=== PATIENT | female | born 1985 | race Two or more races ===

== ENCOUNTER 2024-07-17 19:13 | Emergency (ER) | payer MEDICAID, SELFPAY ==
--- NOTE | 2024-07-17 19:31 | EKG_ITS ---
[facility] Test Date: 2024-07-17 Pat Name: MIRIAN FINK Department: Room: - Gender: Female Android Developer: : [id number] Requested By: Dany Mireles Order Number: [id number] Reading MD: Dany Mireles Measurements Intervals [place] Rate: 65 P: 41 OR: 154 QRS: 11 QRSD: 77 T: 16 QT: 374 QTc: 391 Interpretive Statements SINUS RHYTHM No previous ECG available for comparison /store/S0/[id number]
--- NOTE | 2024-07-17 19:31 | XR_ITS ---
Examination: PA chest single view Technique: Upright PA chest single view Exam date and time: July 17, 2024 at 2043 hrs. Comparison June 17, 2004 Indications: Chest pain beginning 3 days ago. Findings: Suspicious for 10 mm pulmonary nodule left upper lobe Normal heart size No lobar pneumonia Impression: Recommend AP lordotic chest follow-up to exclude 10 mm pulmonary nodule left upper lobe
--- NOTE | 2024-07-17 19:32 | PD.EDRME ---
Rapid Medical Screening Exam RME Arrival date/time: 07/17/24 19:13 Chief Complaint: General Adult/Misc Complain Time Seen by Provider: 07/17/24 19:22 Vital signs: Vital Signs Temperature 98.6 F 07/17/24 19:37 Pulse Rate 72 07/17/24 19:37 Respiratory Rate 18 07/17/24 19:37 Blood Pressure 132/66 H 07/17/24 19:37 Pulse Oximetry (%) 100 07/17/24 19:37 Oxygen Delivery Method Room Air 07/17/24 19:37 RME Narrative: Chest pain, dizziness x 3 days, n/v today
[2024-07-17 19:37] VITALS: BP 132/66; PULSE 72; RESP 18; TEMP 37; O2SAT 100
[2024-07-17 20:09] LABS: Basophils # (Auto) 0.1 Thou/mm3 (0.0-0.2); Basophils % (Auto) 1 % (0-2.5); Eosinophils # (Auto) 0.3 Thou/mm3 (0.0-0.5); Eosinophils % (Auto) 2 % (0-10); Hematocrit 37.7 % (36.0-46.0); Hemoglobin 11.9 g/dL (12.0-16.0); Immature Granulocytes % (Auto) 0 % (0-0); Immature Granulocytes Auto 0.03 Thou/mm3 (0.00-0.00); Lymphocytes # (Auto) 4.6 Thou/mm3 (1.0-4.8); Lymphocytes % (Auto) 36 % (10-50); Mean Corpuscular HGB Conc 31.6 g/dl (31.0-37.0); Mean Corpuscular Hemoglobin 26.1 pg (25.0-35.0); Mean Corpuscular Volume 83 fL (80-100); Monocytes # (Auto) 0.6 Thou/mm3 (0.0-0.8); Monocytes % (Auto) 5 % (0-12); Neutrophils # (Auto) 6.9 Thou/mm3 (1.8-7.7); Neutrophils % (Auto) 55 % (37-80); Nucleated Red Blood Cell % 0 /100 WBC (0); Platelet Count 259 Thou/mm3 (140-440); RDW Standard Deviation 44.5 fL (36.4-46.3); Red Blood Count 4.56 Miln/mm3 (4.00-5.20); White Blood Count 12.5 Thou/mm3 (3.6-11.0)
[2024-07-17 20:24] LABS: Alanine Aminotransferase 27 U/L (10-49); Albumin, Serum 4.7 gm/dL (3.5-5.0); Albumin/Globulin Ratio 1.6 (1.2-2.2); Alkaline Phosphatase 99 U/L (46-116); Anion Gap 7 (7-16); Aspartate Amino Transferase 15 U/L (0-34); BUN/Creatinine Ratio 22 Ratio (12-20); Bilirubin,Total 0.8 mg/dL (0.3-1.2); Blood Urea Nitrogen 11 mg/dL (9-23); Calcium 9.6 mg/dL (8.3-10.6); Calcium (Corrected) 9.6 mg/dL (8.5-10.1); Carbon Dioxide 26.5 mMol/L (20.0-31.0); Chloride 105 mMol/L (98-107); Creatinine (Component) 0.5 mg/dL (0.6-1.3); Glucose 94 mg/dL (74-106); Lipase 42 U/L (12-53); Osmolality,Calculated 275 (275-295); Potassium 3.6 mMol/L (3.4-5.1); Sodium 138 mMol/L (136-145); Total Protein 7.7 gm/dL (5.7-8.2); Troponin I < 0.002 ng/mL (0.0-0.045); eGFR > 60 See Note
[2024-07-17 20:29] LABS: B-Type Natriuretic Peptide 30 pg/mL (0-100)
[2024-07-17 20:34] LABS: Collection Type, Urine Clean Catch
[2024-07-17 21:05] LABS: Bilirubin,Urine Negative (Negative); Blood,Urine Negative (Negative); Clarity,Urine Clear (Clear/Hazy); Color,Urine Yellow (Lt Yel-Yel); Glucose, Urine Negative (Negative); Ketones,Urine Negative (Negative); Leukocyte Esterase,Urine Positive (Negative); Nitrite,Urine Negative (Negative); Protein,Urine 1+ (Neg - Trace); RBC,Urine 5 /hpf (0-3); Specific Gravity,Urine 1.035 (1.001-1.035); Squamous Epithelial Cell,Urine 6 /hpf (0-5); WBC,Urine 9 /hpf (0-5)
[2024-07-17 21:14] LABS: HCG Qualitative,Urine Negative
--- NOTE | 2024-07-17 21:54 | PD.EDADULT ---
ED General RME/HPI General Chief complaint: General Adult/Misc Complain Stated complaint: DIZZY,CP,N/V Time Seen by Provider: 07/17/24 19:22 Arrival date/time: 07/17/24 19:13 RME / HPI RME / HPI narrative: 39-year-old female patient with no significant medical history, came in for evaluation regarding generalized body weakness. Patient has been having flulike symptoms, generalized body weakness, for the last 4 days, associated with dizziness, chest discomfort, nausea, vomiting severity moderate. Patient denies any cough. Denies any abdominal pain denies any diarrhea denies any constipation denies any dysuria or frequency. No medications taken prior travel. Related Data Home Medications ?Medication ?Instructions ?Recorded ?Confirmed vits no.124-ferrous fum 1 tab PO QDAY 06/01/19 06/08/19 27 mg iron-folic acid 800 mcg tablet ( Vitamin) Previous Rx's ?Medication ?Instructions ?Recorded acetaminophen 500 mg tablet 1,000 mg (2 x 500 mg) PO QID PRN 06/08/19 (Tylenol Extra Strength) fever or pain #30 tabs etodolac 400 mg tablet 400 mg PO BID PRN pain #30 tabs 11/29/21 methocarbamol 750 mg tablet 750 mg PO TID PRN pain #30 tabs 11/29/21 ibuprofen 800 mg tablet 800 mg PO TID PRN pain #30 tabs 07/17/24 ondansetron HCl 4 mg tablet 4 mg PO Q8H PRN nausea and 07/17/24 vomiting 5 days #20 tabs Allergies Allergy/AdvReac Type Severity Reaction Status Date / Time No Known Allergies Allergy Verified 07/17/24 19:16 Review of Systems Review of Systems Narrative Review of Systems: Review of system reviewed and within normal limits except mentioned in HPI ED Exam Narrative Physical exam: VITAL SIGNS: Reviewed. GENERAL APPEARANCE: Alert and interactive, follows commands, no acute distress, HEAD AND FACE: Non-traumatic. ENT: PERRL, pink conjunctivitis, eyelid no trauma, Mucous membrane moist. NECK: Supple, nontender, no nuchal rigidity. CHEST: No tenderness, no crepitus, no paradoxical movement, no retractions. LUNGS: Clear, well ventilated, symmetric, no rales, no wheezing, no ronchi, no stridor, good breath sounds bilaterally. HEART: Regular rate, regular rhythm, no murmur, no gallops. ABDOMEN: Soft, positive bowel sounds, nondistended, no guarding, nontender, no rebound, no masses, RECTAL: Deferred. GENITAL: Deferred. NEUROLOGICAL: Gross motor function intact sensory function intact, Appropriate for age. MUSCULOSKELETAL: low back nontender, full range of motion. EXTREMITIES: Nontender, full range of motion. SKIN: Color pink, dry, no rash, no lacerations, no abrasions, no contusions. LYMPHATICS: Deferred. Course Quality Measures none Orders Category Date Time Status EKG (ED ONLY) *Do not use* NOW Care 07/17/24 19:32 Completed CXR [XR chest 1V] Stat Exams 07/17/24 19:31 Completed EKG (ED Only) Stat Exams 07/17/24 19:31 Draft BNP [B-Type Natriuretic Peptide] Stat Lab 07/17/24 19:47 Completed CBC Stat Lab 07/17/24 19:47 Completed CMP [Comprehensive Metabolic Panel] Stat Lab 07/17/24 19:47 Completed HCG Qualitative,Urine Stat Lab 07/17/24 19:53 Completed Lipase Stat Lab 07/17/24 19:47 Completed Troponin I Stat Lab 07/17/24 19:47 Completed UA [Urinalysis] Stat Lab 07/17/24 19:53 Completed Vital Signs Vital signs: Vital Signs Temperature 98.6 F 07/17/24 19:37 Pulse Rate 72 07/17/24 19:37 Respiratory Rate 18 07/17/24 19:37 Blood Pressure 132/66 H 07/17/24 19:37 Pulse Oximetry (%) 100 07/17/24 19:37 Oxygen Delivery Method Room Air 07/17/24 19:37 [facility] Patient data External records reviewed:: None Clinical information provided by:: patient and family Social determinants that could affect healthcare access:: none Patient has the following chronic illnesses:: None How is presenting disease/condition affected by chronic disease/condition?: no chronic disease Evaluation data The following diagnostics were reviewed and interpreted by me:: lab results and radiology exam(s) Lab and/or radiology exams considered but not ordered:: None Interpretation Summary: Laboratory workup all came back unremarkable. Troponin is normal chest x-ray came back Recommend AP lordotic chest follow-up to exclude 10 mm pulmonary nodule left upper lobe Medications Medications considered but not ordered:: None Medication administrations:: None Consultations Consultation(s) initiated? (list below): No Diagnosis Differential Diagnosis ED Complaint MDM: Flulike symptoms, nausea vomiting, chest pain, generalized weakness Most likely diagnosis given after review of the tests above:: Generalized body weakness, flulike symptoms Admission Indicated Admission indicated?: not indicated Explain why admission is indicated or not indicated:: Stable Admission Request Was there a request for admission?: No Disposition Plan Disposition Plan: Discharge Discharge Attestation Discharge Attestation: The patient and all family members were given an opportunity to ask questions and understood the discharge instructions. Discharge instructions specifically effects, indications for sooner follow up or return to the emergency department, and the expected course of current diagnosis. Patient condition: Stable Medical Decision Making MDM Narrative MDM Narrative: 39-year-old female patient with no significant medical history, came in for evaluation regarding generalized body weakness. Patient has been having flulike symptoms, generalized body weakness, for the last 4 days, associated with dizziness, chest discomfort, nausea, vomiting severity moderate. Patient denies any cough. Denies any abdominal pain denies any diarrhea denies any constipation denies any dysuria or frequency. No medications taken prior travel. Patient's workup today all came back normal. Chest x-ray also came back unremarkable no pneumonia no infiltrates no pneumothorax no hemothorax except for possible nodule noted patient needs outpatient repeat x-ray. Patient results discussed with them. Differential Diagnosis Differential Diagnosis: Flulike symptoms, nausea vomiting, chest pain, generalized weakness Lab Data 07/17/24 19:47 07/17/24 19:47 Labs: Lab Results 07/17/24 07/17/24 Range/Units 19:47 19:53 WBC 12.5 H (3.6-11.0) Thou/mm3 RBC 4.56 (4.00-5.20) Miln/mm3 Hgb 11.9 L (12.0-16.0) g/dL Hct 37.7 (36.0-46.0) % MCV 83 (80-100) fL MCH 26.1 (25.0-35.0) pg MCHC 31.6 (31.0-37.0) g/dl RDW Std Deviation 44.5 (36.4-46.3) fL Plt Count 259 (140-440) Thou/mm3 Neut % (Auto) 55 (37-80) % Lymph % (Auto) 36 (10-50) % [place] % (Auto) 5 (0-12) % Eos % (Auto) 2 (0-10) % Baso % (Auto) 1 (0-2.5) % Neut # (Auto) 6.9 (1.8-7.7) Thou/mm3 Lymph # (Auto) 4.6 (1.0-4.8) Thou/mm3 [place] # (Auto) 0.6 (0.0-0.8) Thou/mm3 Eos # (Auto) 0.3 (0.0-0.5) Thou/mm3 Baso # (Auto) 0.1 (0.0-0.2) Thou/mm3 Immature Gran # (Auto) 0.03 H (0.00-0.00) Thou/mm3 Absolute Nucleated RBC 0.00 (0.00-0.00) Thou/mm3 Immature Gran % 0 (0-0) % Nucleated RBC % 0 (0) /100 WBC Sodium 138 (136-145) mMol/L Potassium 3.6 (3.4-5.1) mMol/L Chloride 105 (98-107) mMol/L Carbon Dioxide 26.5 (20.0-31.0) mMol/L Anion Gap 7 (7-16) BUN 11 (9-23) mg/dL Creatinine 0.5 L (0.6-1.3) mg/dL Estim Creat Clear Calc Not Performed. eGFR > 60 (60 - ) See Note BUN/Creatinine Ratio 22 H (12-20) Ratio Glucose 94 (74-106) mg/dL Calculated Osmolality 275 (275-295) Calcium 9.6 (8.3-10.6) mg/dL Corrected Calcium 9.6 (8.5-10.1) mg/dL Total Bilirubin 0.8 (0.3-1.2) mg/dL AST 15 (0-34) U/L ALT 27 (10-49) U/L Alkaline Phosphatase 99 (46-116) U/L Troponin I < 0.002 (0.0-0.045) ng/mL B-Natriuretic Peptide 30 (0-100) pg/mL Total Protein 7.7 (5.7-8.2) gm/dL Albumin 4.7 (3.5-5.0) gm/dL Globulin 3.0 (2.3-3.5) gm/dL Albumin/Globulin Ratio 1.6 (1.2-2.2) Lipase 42 (12-53) U/L Ur Collection Type Clean Catch Urine Color Yellow (Lt Yel-Yel) Urine Clarity Clear (Clear/Hazy) Urine pH 7.0 (5.0-7.0) Ur Specific [place] 1.035 (1.001-1.035) Urine Protein 1+ A (Neg - Trace) Urine Glucose (UA) Negative (Negative) Urine Ketones Negative (Negative) Urine Blood Negative (Negative) Urine Nitrite Negative (Negative) Urine Bilirubin Negative (Negative) Urine Urobilinogen (Auto) 4.0 (0.0-1.0) mg/dL Ur Leukocyte Esterase Positive (Negative) Urine RBC 5 H (0-3) /hpf Urine WBC 9 H (0-5) /hpf Ur Squamous Epith Cells 6 H (0-5) /hpf Urine Bacteria None (None) Urine HCG, Qual Negative Discharge Plan Plan Patient Disposition: HOME (Self Care) Disposition Comment: stable Prescriptions/Referrals Prescriptions/Med Rec: New ibuprofen 800 mg tablet 800 mg PO TID PRN (Reason: pain) Qty: 30 0RF ondansetron HCl 4 mg tablet 4 mg PO Q8H PRN (Reason: nausea and vomiting) 5 Days Qty: 20 0RF No Action Vitamin 27 mg iron- 800 mcg Tablet 1 tab PO QDAY acetaminophen [Tylenol Extra Strength] 500 mg tablet 1,000 mg PO QID PRN (Reason: fever or pain) Qty: 30 0RF methocarbamol 750 mg tablet 750 mg PO TID PRN (Reason: pain) Qty: 30 0RF etodolac 400 mg tablet 400 mg PO BID PRN (Reason: pain) Qty: 30 0RF Referrals: Jaleel Ramos MD [Primary Care Provider] - In 1 week Problem List Clinical Impression: Flu-like symptoms Patient/Caregiver Discharge Instructions Discharge Activity: activity as tolerated Education Materials: ED Symptoms With Uncertain Cause Additional Instructions: Thank you for the opportunity for serving you today. You are stable for discharged . You are advised to: Follow-up with your PCP in 1 to 2 days Return to ED for worsening of symptoms Increase oral fluids Take medication as prescribed Print Language: Guatemalan Stand Alone Forms: [employer] Info., Patient Portal Info Letter
[2024-07-17 22:05] VITALS: RESP 18
== END 2024-07-17 22:06 | disposition home or self-care (01) ==
PROVIDERS: Physician Assistant; Emergency Provider Emergency Medicine; PCP Family Medicine
DX: R42 Dizziness and giddiness (principal); R07.9 Chest pain, unspecified
CPT/HCPCS: 36415; 71045; 80053; 81001; 81025; 83690; 83880; 84484; 85025; 93005; 99283

== ENCOUNTER → 2024-10-16 | Outpatient (CLI) | payer MEDICAID, SELFPAY ==
--- NOTE | 2024-10-16 11:00 | XR_ITS ---
Examination: Breast ultrasound, unilateral, left complete Date and time of exam: October 16, 2024 1059 hrs. Indications: Mammogram January 23, 2024 3:00 nodule left breast Technique: Real-time palma scale ultrasonographic imaging performed left breast including all 4 quadrants as well as nipple retroareolar and axillary region. Findings: 2:00 nodule lobular margins 6 x 5 mm Impression: BI-RADS Category 2: Benign findings
--- NOTE | 2024-10-16 11:45 | XR_ITS ---
Examination: Diagnostic digital mammography, unilateral, left Computer aided detection 3-D breast Tomosynthesis, unilateral Date and time of exam: 10/16/2024, 11:32 AM Comparisons: September Indications: Technique: Nonmagnified MLO, CC views of the left breast have been obtained, reconstructed from 3-D Tomosynthesis images. R2 computer aided detection program utilized for evaluation of suspicious masses and/or abnormal calcifications. 3-D Tomosynthesis images obtained. Technologist: Findings: There are scattered areas of fibroglandular density. No evidence of abnormal masses or suspicious calcifications. The previously described abnormality is not seen on today's exam.. Impression: BI-RADS category 1: Negative findings (within normal) Recommend 1 year follow-up mammogram
== END | disposition home or self-care (01) ==
LOC: CDIM 10:48
PROVIDERS: PCP Physician Assistant; Referring Provider Physician Assistant; Visit Provider Physician Assistant
DX: R92.312 Mammographic fatty tissue density, left breast (principal); N63.21 Unspecified lump in the left breast, upper outer quadrant; Z11.1 Encounter for screening for respiratory tuberculosis
CPT/HCPCS: 76641; 77061; 77065; G0279